=== PATIENT | female | born 1990 | race American Indian/Alaskan Native ===

== ENCOUNTER 2016-05-05 09:05 | Emergency (ER) | payer MEDICAID ==
[2016-05-05 09:16] VITALS: BP 119/74
[2016-05-05 09:40] LABS: Basophils % (Auto) 0.4 % (0.0-1.8); Hematocrit 37.4 % (30.3-42.9); Mean Corpuscular HGB Conc 32 % (30-34); Mean Corpuscular Volume 75 fl (79-97); Platelet Count 245 K/mm3 (140-440); Red Blood Count 4.98 M/mm3 (3.65-5.03); Red Cell Distribution Width 15.2 % (13.2-15.2); White Blood Count 5.4 K/mm3 (4.5-11.0)
[2016-05-05 09:50] LABS: Mean Corpuscular Hemoglobin 24 pg (28-32)
[2016-05-05 09:52] LABS: Bacteria,Urine 1+ /HPF (Negative); Mucus,Urine FEW /HPF
[2016-05-05 09:57] LABS: Bilirubin,Urine Negative (Negative); Blood,Urine Negative (Negative); Ketones,Urine Negative (Negative); Leukocyte Esterase,Urine Negative (Negative); Nitrite,Urine Negative (Negative); Protein,Urine <15 mg/dL mg/dL (Negative); Urobilinogen,Urine 0.2 mg/dL (<2.0)
[2016-05-05 10:06] LABS: Alanine Aminotransferase 7 units/L (7-56); Albumin 4.2 g/dL (3.9-5); Albumin/Globulin Ratio 1.3 %; Alkaline Phosphatase 33 units/L (35-129); Anion Gap 18 mmol/L; BUN/Creatinine Ratio 11.42; Bilirubin,Total 0.3 mg/dL (0.1-1.2); Blood Urea Nitrogen 8 mg/dL (7-17); Calcium 8.8 mg/dL (8.4-10.2); Carbon Dioxide 21 mmol/L (22-30); Chloride 98.2 mmol/L (98-107); Glucose 81 mg/dL (65-100); Lipase 41 units/L (13-60); Potassium 3.8 mmol/L (3.6-5.0); Sodium 133 mmol/L (137-145); Total Protein 7.5 g/dL (6.3-8.2)
--- NOTE | 2016-05-09 15:46 | ED Elopement Review ---
ED Pt Elopement review - Results review Lab results: Laboratory Tests 05/05/16 05/05/16 05/05/16 09:28 09:28 09:30 WBC 5.4 RBC 4.98 Hgb 12.0 Hct 37.4 MCV 75 L MCH 24 L MCHC 32 RDW 15.2 Plt Count 245 Lymph % (Auto) 35.4 H [place] % (Auto) 11.9 H Eos % (Auto) 1.0 Baso % (Auto) 0.4 Lymph # 1.9 [place] # 0.6 Eos # 0.1 Baso # 0.0 Seg Neutrophils % 51.3 Seg Neutrophils # 2.8 Sodium 133 L Potassium 3.8 Chloride 98.2 Carbon Dioxide 21 L Anion Gap 18 BUN 8 Creatinine 0.7 Estimated GFR > 60 BUN/Creatinine Ratio 11.42 Glucose 81 Calcium 8.8 Total Bilirubin 0.3 AST 11 ALT 7 Alkaline Phosphatase 33 L Total Protein 7.5 Albumin 4.2 Albumin/Globulin Ratio 1.3 Lipase 41 Urine Color Yellow Urine Turbidity Hazy Urine pH 6.0 Ur Specific [place] 1.020 Urine Protein <15 mg/dl Urine Glucose (UA) Negative Urine Ketones Negative Urine Blood Negative Urine Nitrite Negative Ur Reducing Substances Not Reportable Urine Bilirubin Negative Urine Ictotest Not Reportable Urine Urobilinogen 0.2 Ur Leukocyte Esterase Negative Urine WBC (Auto) 1.0 Urine RBC (Auto) 1.0 U Epithel Cells (Auto) 6.0 Urine Bacteria (Auto) 1+ Urine Mucus Few - Call Back decision Pt Call Back Decision: No action required
== END 2016-05-05 19:10 | disposition left against medical advice (07) ==
LOC: ED 09:05
DX: R19.7 Diarrhea, unspecified (principal); Z53.21 Procedure and treatment not carried out due to patient leaving prior to being seen by health care provider
CPT/HCPCS: 36415; 80053; 81001; 83690; 85025